=== PATIENT | male | born 1960 | race Caucasian/White ===

== ENCOUNTER 2020-06-05 08:11 | Outpatient (CLI) | payer OTHER | END 2020-06-05 08:12 | disposition home or self-care (01) | LOC: PET 08:11 | PROVIDERS: ATTEND Family Medicine | DX: C85.10 Unspecified B-cell lymphoma, unspecified site (principal) | CPT/HCPCS: 78815; A9552 ==

== ENCOUNTER 2022-06-29 09:30 | Outpatient (CLI) | payer BC, OTHER | END 2022-06-29 09:31 | disposition home or self-care (01) | LOC: PET 09:30 | PROVIDERS: ATTEND Family Medicine | DX: C85.10 Unspecified B-cell lymphoma, unspecified site (principal); R91.8 Other nonspecific abnormal finding of lung field | CPT/HCPCS: 78815; A9552 ==